=== PATIENT | male | born 1985 | race Hispanic/Latino ===

== ENCOUNTER → 2023-07-07 | Emergency (ER) | payer OTHER ==
[~2023-07-07] MED LIST: MECLIZINE HCL 12.5 MG TAB ONE; ONDANSETRON 4 MG/2 ML VIAL ONE
--- OUTSIDE RECORDS SUMMARY | 2023-07-07 06:08 | XMS REPORT | Continuity of Care Document ---
Author Name Unknown Address [address] [place] [address] [facility] thconnect Address [address] [place] [address] Care Team Providers Care Survey Instrument Operator Name Role Phone Unavailable Unavailable Unavailable Allergies, Adverse Reactions, Alerts Allergy Name Allergy Type Status Severity Reaction(s) Onset Date Inactive Date Treating Clinician Comments Source No Known Contrast Allergie s DA Active U 2002-06 00:00: 00 [facility] [place], [place] No Known Drug Allergie s DA Active U 2002-06 00:00: 00 [facility] [place] [place] No Known Food Allergie s DA Active U 2002-06 00:00: 00 [facility] No Known Other Allergie s DA Active U 2002-06 00:00: 00 [facility] [place] [place] No Known Drug Intolera nces DA Active U 2002-06 00:00: 00 [facility]
[2023-07-07 07:03] LABS: Absolute Lymphocytes (CBC) 1.9 K/uL (0.7-4.9); Lymphocytes % 32.3 % (15.3-44.8); MPV 6.9 fL (7.6-11.3); Platelets 276 thou/uL (152-406); RBC Red Blood Cell Count 4.27 M/uL (4.33-5.43)
[2023-07-07 07:28] LABS: Potassium 4.5 mEq/L (3.5-5.1); Troponin High Sensitivity 6.3 pg/mL (<58.9)
--- NOTE | 2023-07-07 08:07 | RAD REPORT ---
EXAM DESCRIPTION: CT - Head Brain Wo Cont - 07/07/2023 7:17 am CLINICAL HISTORY: DIZZINESS COMPARISON: Head angio dated 07/07/2023 TECHNIQUE: Noncontrast head CT images were obtained without IV contrast. Multiplanar reformats were generated and reviewed. All CT scans are performed using dose optimization technique as appropriate and may include automated exposure control or mA/KV adjustment according to patient size. FINDINGS: No intracranial hemorrhage, mass, or edema. Midline structures are unremarkable. Normal ventricular caliber for age. Johns-white matter differentiation is preserved, without evidence of acute infarct. No abnormal extra- axial fluid collections. Mastoid air cells and visualized portions of the paranasal sinuses are clear. No acute bony findings. IMPRESSION: No evidence of an acute intracranial process.
--- NOTE | 2023-07-07 08:16 | RAD REPORT ---
EXAM DESCRIPTION: CT - Head angio - 07/07/2023 7:18 am CLINICAL HISTORY: DIZZINESS COMPARISON: No comparisons TECHNIQUE: Axial CT angiography images of the head was performed with multiplanar and maximum intens ity projection reconstructions. Images performed following intravenous administration of 100mL Isovue 370. All CT scans are performed using dose optimization technique as appropriate and may include automated exposure control or mA/KV adjustment according to patient size. FINDINGS: No evidence of large vessel occlusion. No evidence of aneurysm or dissection flap is detec mary ann. No flow-limiting stenosis or vascular malformation identified. Antegrade flow is seen in the vertebral arteries. The vertebral arteries are codominant. The visualized dural venous sinuses are grossly patent. IMPRESSION: No evidence of large vessel occlusion or flow-limiting stenosis.
--- NOTE | 2023-07-07 08:18 | RAD REPORT ---
EXAM DESCRIPTION: CT - Neck Angio - 07/07/2023 7:18 am CLINICAL HISTORY: dizziness COMPARISON: No comparisons TECHNIQUE: Axial CT angiography images of the head was performed with multiplanar and maximum intens ity projection reconstructions. Images performed following intravenous administration of 100mL Isovue 370. All CT scans are performed using dose optimization technique as appropriate and may include automated exposure control or mA/KV adjustment according to patient size. Quantification of carotid stenosis, if any, is performed according to NASCET criteria. FINDINGS: A left aortic arch is identified with normal three vessel configuration of the great vesse ls. No significant flow abnormality is seen of the common carotid bilaterally. No significant stenosis is identified involving the cervical segments of both internal carotid arteri es. Normal flow is seen within both vertebral arteries. IMPRESSION: No significant flow abnormality of the neck vessels is identified. CAROTID STENOSIS REFERENCE USING NASCET CRITERIA: % ICA stenosis = (1 - narrowest ICA diameter/diameter of distal cervical ICA) x 100. Mild - <50% stenosis. Moderate - 50-69% stenosis. Severe - 70-94% stenosis. Near occlusion - 95-99% stenosis. Occluded - 100% stenosis.
--- NOTE | 2023-07-07 08:23 | RAD REPORT ---
EXAM DESCRIPTION: [place] Single View07/07/2023 6:42 am CLINICAL HISTORY: dizziness COMPARISON: No comparisons TECHNIQUE: Portable AP view of the chest. FINDINGS: Decreased penetration somewhat limits evaluation. The lungs are clear. No pneumothorax or effusion. The cardiomediastinal contours are unremarkable. IMPRESSION: No acute cardiopulmonary process.
--- NOTE | 2023-07-07 08:40 | ER ---
Nurse's Notes [facility] Name: Chito Vega Age: 37 yrs Sex: Male : 1985 Arrival Date: 07/07/2023 Time: 06:05 Bed 6 Private MD: Diagnosis: Dizziness and giddiness Presentation: 07/07 06:38 Chief complaint: Patient states: I have been having dizzy spells for the past 2 days. jb4 It is like I am drunk and the room is spinning. I have also been very congested for the past week. Coronavirus screen: At this time, the client does not indicate any symptoms associated with coronavirus-19. Ebola Screen: No symptoms or risks identified at this time. Initial Sepsis Screen: Does the patient meet any 2 criteria? No. Patient's initial sepsis screen is negative. Does the patient have a suspected source of infection? No. Patient's initial sepsis screen is negative. Risk Assessment: Do you want to hurt yourself or someone else? Patient reports no desire to harm self or others. Onset of symptoms was July 05, 2023. Transition of care: patient was not received from another setting of care. 06:38 Method Of Arrival: Ambulatory jb4 06:38 Acuity: OFE 3 jb4 Historical: - Allergies: 06:39 No Known Allergies; jb4 - PMHx: 06:39 None; jb4 - PSHx: 06:39 Left knee surgery; jb4 - Immunization history:: Adult Immunizations up to date. - Social history:: Smoking status: Patient denies any tobacco usage or history of. Patient uses alcohol, but reports only rare drinking. - Family history:: not pertinent. - Hospitalizations: : No recent hospitalization is reported. Screenin:45 [facility] ED Fall Risk Assessment (Adult) History of falling in the last 3 months, jj7 including since admission No falls in past 3 months (0 pts) Confusion or Disorientation No (0 pts) Intoxicated or Sedated No (0 pts) Impaired Gait No (0 pts) Mobility Assist Device Used No (0 pt) Altered Elimination No (0 pt) Score/Fall Risk Level 0 - 2 = Low Risk Oriented to surroundings, Maintained a safe environment, Educated pt \T\ family on fall prevention, incl call for assistance when getting out of bed. Abuse screen: Denies threats or abuse. Nutritional screening: No deficits noted. Tuberculosis screening: No symptoms or risk factors identified. Assessment: 06:45 General: Appears in no apparent distress. uncomfortable, Behavior is calm, cooperative, jj7 appropriate for age. Pain: Denies pain. Neuro: Reports dizziness, since WEDNESDAY. Vital Signs: 06:38 BP 124 / 80; Pulse 67; Resp 16; Temp 98.2(TE); Pulse Ox 100% on R/A; Weight 104.33 kg jb4 (R); Height 5 ft. 11 in. (R); 07:51 BP 135 / 74; Pulse 62; Resp 18; Pulse Ox 100% on R/A; ph 08:55 BP 110 / 72; Pulse 64; Resp 18; Temp 98; Pulse Ox 98% on R/A; ph 06:38 Body Mass Index 32.08 (104.33 kg, 180.34 cm) jb4 ED Course: 06:09 Patient arrived in ED. jj6 06:39 Triage completed. jb4 06:40 Arm band placed on right wrist. jb4 06:44 XRAY Chest (1 view) In Process Unspecified. EDMS 06:45 Patient has correct armband on for positive identification. Bed in low position. Call jj7 light in reach. 06:45 No provider procedures requiring assistance completed. Inserted saline lock: 20 gauge jj7 in right antecubital area, using aseptic technique. Blood collected. 06:52 Blair Sandoval MD is Attending Physician. rn 07:02 Basic Metabolic Panel Sent. jj7 07:02 CBC with Diff Sent. jj7 07:02 NT PRO-BNP Sent. jj7 07:04 Troponin HS Sent. jj7 07:18 CT Head Brain wo Cont In Process Unspecified. EDMS 07:20 CT Head Angio In Process Unspecified. EDMS 07:[address] In Process Unspecified. EDMS 07:51 Batsheva Jennings, RN is Primary Nurse. ph 08:56 IV discontinued, intact, bleeding controlled, No redness/swelling at site. Pressure ph dressing applied. Administered Medications: 06:55 Drug: Ondansetron IVP 4 mg IVP once; over 2 minutes Route: IVP; Site: right antecubital;jj7 08:55 Follow up: Response: No adverse reaction ph 07:05 CANCELLED (Duplicate Order): ondansetron 4 mg IVP once; over 2 minutes jj7 07:51 Drug: Meclizine PO 50 mg PO once Route: PO; ph 08:55 Follow up: Response: No adverse reaction ph Medication: 06:45 VIS not applicable for this client. jj7 Outcome: 08:39 Discharge ordered by . rn 08:56 Discharged to home ambulatory, with significant other, ph 08:56 Condition: good 08:56 Discharge instructions given to patient, significant other, Instructed on discharge instructions, follow up and referral plans. medication usage, Demonstrated understanding of instructions, follow-up care, medications, Prescriptions given X 2, 08:56 Patient left the ED. ph Signatures: Dispatcher [employer] EDMS Blair Sandoval MD MD rn Hall, Patricia, RN RN Pedro Mckinnon RN RN jb4 Daniela Sales jj6 Elie Anne RN RN jj7
--- NOTE | 2023-07-07 08:40 | EDPHYS ---
Physician Documentation [facility] Name: Chito Vega Age: 37 yrs Sex: Male : 1985 Arrival Date: 07/07/2023 Time: 06:05 Bed 6 Private MD: ED Physician Blair Sandoval HPI: 07/07 07:57 This 37 yrs old Male presents to ER via Ambulatory with complaints of rn Dizziness. 07:57 The patient presents with dizziness, feeling off balance, sense of spinning. Onset: The rn symptoms/episode began/occurred 2 day(s) ago. Modifying factors: The symptoms are alleviated by holding head still, the symptoms are aggravated by movement of head, standing up, changing position. Severity of symptoms: At their worst the symptoms were moderate in the emergency department the symptoms have improved. The patient has not experienced similar symptoms in the past. Patient reports has had allergies and congestion symptoms recently. 2 days ago started with dizziness, feels off balance, worse with changing position change and head direction. Is intermittent. Has never had this before. No other medical problems. Of note patient started testosterone injections last week but otherwise feels okay. No other focal neurological deficit.. Historical: - Allergies: 06:39 No Known Allergies; jb4 - PMHx: 06:39 None; jb4 - PSHx: 06:39 Left knee surgery; jb4 - Immunization history:: Adult Immunizations up to date. - Social history:: Smoking status: Patient denies any tobacco usage or history of. Patient uses alcohol, but reports only rare drinking. - Family history:: not pertinent. - Hospitalizations: : No recent hospitalization is reported. ROS: 07:57 Constitutional: Negative for fever, chills, and weight loss, Neck: Negative for injury, rn pain, and swelling, Cardiovascular: Negative for chest pain, palpitations, and edema, Respiratory: Negative for shortness of breath, cough, wheezing, and pleuritic chest pain, Abdomen/GI: Negative for abdominal pain, diarrhea, and constipation, MS/Extremity: Negative for injury and deformity, Skin: Negative for injury, rash, and discoloration, Neuro: Negative for headache, weakness, numbness, tingling, and seizure, Exam: 07:57 Constitutional: This is a well developed, well nourished patient who is awake, alert, rn and in no acute distress. Head/Face: Normocephalic, atraumatic. Eyes: Pupils equal round and reactive to light, extra-ocular motions intact. Nystagmus present with left lateral gaze Neck: No Meningismus. Cardiovascular: Regular rate and rhythm. No pulse deficits. Respiratory: No increased work of breathing, no retractions or nasal flaring. MS/ Extremity: Pulses equal, no cyanosis. Neuro: Awake and alert, GCS 15, oriented to person, place, time, and situation. Cranial nerves II-XII grossly intact. Motor strength 5/5 in all extremities. Sensory grossly intact. Cerebellar exam normal. Vital Signs: 06:38 BP 124 / 80; Pulse 67; Resp 16; Temp 98.2(TE); Pulse Ox 100% on R/A; Weight 104.33 kg jb4 (R); Height 5 ft. 11 in. (R); 07:51 BP 135 / 74; Pulse 62; Resp 18; Pulse Ox 100% on R/A; ph 08:55 BP 110 / 72; Pulse 64; Resp 18; Temp 98; Pulse Ox 98% on R/A; ph 06:38 Body Mass Index 32.08 (104.33 kg, 180.34 cm) jb4 MDM: 06:52 Patient medically screened. rn 08:37 Differential diagnosis: cardiac arrhythmia, CVA, generalized weakness, hypovolemia, rn idiopathic dizziness, vertigo. Data reviewed: vital signs, nurses notes, lab test result(s), EKG, radiologic studies, CT scan, and as a result, I will discharge patient. Counseling: I had a detailed discussion with the patient and/or guardian regarding the historical points, exam findings, and any diagnostic results supporting the discharge/admit diagnosis, lab results, radiology results, the need for outpatient follow up, to return to the emergency department if symptoms worsen or persist or if there are any questions or concerns that arise at home. Special discussion: I discussed with the patient/guardian in detail that at this point there is no indication for admission to the hospital. It is understood, however, that if the symptoms persist or worsen the patient needs to return immediately for re-evaluation. Based on the history and exam findings, there is no indication for further emergent testing or inpatient evaluation. I discussed with the patient/guardian the need to see the neurologist for further evaluation of the symptoms. ED course: Patient with improvement, normal neuroexam, normal CT head and head and neck angios. No acute findings and blood work. Stable vital signs. Will DC home with meclizine and as needed Zofran with return precautions and neuro follow-up. I have personally reviewed all of the results, including but not limited to blood tests and imaging deemed necessary to safely discharge this patient at this time. All results given to and printed out for patient. I personally went over all the results with the patient and answered all questions. Patient will follow-up with PCP and or specialist as discussed. Return precautions given and understood.. 07/07 06:33 Order name: Basic Metabolic Panel; Complete Time: 07:31 ec2 07/07 06:33 Order name: CBC with Diff; Complete Time: 07:31 ec2 07/07 06:33 Order name: NT PRO-BNP; Complete Time: 07:31 ec2 07/07 06:33 Order name: Troponin HS; Complete Time: 07:31 ec2 07/07 06:33 Order name: XRAY Chest (1 view); Complete Time: 08:23 ec2 07/07 07:02 Order name: CT Head Brain wo Cont; Complete Time: 08:23 rn 07/07 07:02 Order name: CT Head Angio; Complete Time: 08:23 rn 07/07 07:02 Order name: Neck Angio CT; Complete Time: 08:23 rn 07/07 06:33 Order name: EKG; Complete Time: 06:33 ec2 07/07 06:33 Order name: Cardiac monitoring; Complete Time: 07:51 ec2 07/07 06:33 Order name: EKG - Nurse/Tech; Complete Time: 07:36 ec2 07/07 06:33 Order name: IV Saline Lock; Complete Time: 07:02 ec2 07/07 06:33 Order name: Labs collected and sent; Complete Time: 07:02 ec2 07/07 06:33 Order name: O2 Per Protocol; Complete Time: 07:02 ec07/07 06:33 Order name: O2 Sat Monitoring; Complete Time: 07:02 ec2 Administered Medications: 06:55 Drug: Ondansetron IVP 4 mg IVP once; over 2 minutes Route: IVP; Site: right antecubital;jj7 08:55 Follow up: Response: No adverse reaction ph 07:05 CANCELLED (Duplicate Order): ondansetron 4 mg IVP once; over 2 minutes jj7 07:51 Drug: Meclizine PO 50 mg PO once Route: PO; ph 08:55 Follow up: Response: No adverse reaction ph Disposition Summary: 07/07/23 08:39 Discharge Ordered Notes: Location: Home rn Problem: new rn Symptoms: have improved rn Condition: Stable rn Diagnosis - Dizziness and giddiness rn Followup: rn - With: Private Physician - When: As needed - Reason: Recheck today's complaints, Re-evaluation by your physician Discharge Instructions: - Discharge Summary Sheet rn - Dizziness rn - Vertigo rn Forms: - Medication Reconciliation Form rn - Thank You Letter rn - Antibiotic art gallery internship - Prescription Opioid Use rn - Patient Portal Instructions rn - Leadership Thank You Letter rn - Work release form ph Prescriptions: - ondansetron 4 mg Oral Tablet,disintegrating - take 1 tablet ORAL route every 8 hours As needed; 15 tablet; Refills: 0, rn Product Selection Permitted - Meclizine 25 mg Oral Tablet - take 1 tablet ORAL route every 8 hours As needed; 30 tablet; Refills: 0, rn Product Selection Permitted Signatures: Dispatcher [employer] Blair Pickett MD MD rn Hall, Patricia, RN RN Pedro Mckinnon RN RN jb4 Elie Anne RN RN jj7 Cristian Real MD MD ec2 Corrections: (The following items were deleted from the chart) 07:05 06:47 Ondansetron IVP 4 mg IVP once; over 2 minutes ordered. ec2 jj7
[2023-07-07 09:20] VITALS: BP 110/72; TEMP 98; O2SAT 98
== END ==
LOC: ER 06:05
DX: R42 Dizziness and giddiness (principal)
CPT/HCPCS: 93005; 85025; 80048; 36415; 84484; 83880; 70450; 70496; 70498; 71045; Q9967; J8597; J2405